=== PATIENT | male | born 1965 | race Caucasian/White ===

== ENCOUNTER → 2018-06-01 | Outpatient (CLI) | payer SELFPAY ==
--- NOTE | 2018-06-01 11:18 | REP ---
RIGHT ELBOW, FOUR VIEWS: HISTORY: Contusion. There is no acute fracture or dislocation. The joint space is normal in appearance. Ossified densities are present adjacent to the coronoid process and olecranon. This represents ligamentous or tendon calcification. IMPRESSION: There is no acute fracture or dislocation. Electronically Signed by Jorge Moore MD 06/01/2018 11:20 A
--- NOTE | 2018-06-01 11:25 | REP ---
RIGHT KNEE, FIVE VIEWS: HISTORY: Contusion. There is no acute fracture or dislocation. There is minimal narrowing of the medial knee joint space. The lateral knee joint space and patellofemoral joint space are normal in appearance. Osteophytes are present on the tibia and patella. IMPRESSION: There is no acute fracture or dislocation. Electronically Signed by Jorge Moore MD 06/01/2018 11:28 A
== END ==
LOC: M WUC 09:23
PROVIDERS: ATTEND Physician Assistant
DX: S50.01XA Contusion of right elbow, initial encounter (principal); S80.01XA Contusion of right knee, initial encounter; X58.XXXA Exposure to other specified factors, initial encounter; Y92.89 Other specified places as the place of occurrence of the external cause

== ENCOUNTER 2018-07-09 18:25 | Emergency (ER) | payer OTHER, SELFPAY ==
[~2018-07-09] VITALS: Ht 177.8 cm; Wt 152.3 kg
[2018-07-09 18:25] VITALS: BP 163/74
[2018-07-09] MEDS ORDERED: ASPI1TAB PO (18:37)
[2018-07-09] MEDS ORDERED: METF10004 PO (18:37)
[2018-07-09] MEDS ORDERED: LEVO25TA5 PO (18:37)
[2018-07-09] MEDS ORDERED: HYDR12.55 PO (18:37)
[2018-07-09] MEDS ORDERED: MELO15TA28 PO (18:37)
[2018-07-09] MEDS ORDERED: GLUCTAB6 PO (18:37)
[2018-07-09] MEDS ORDERED: FISH1000 PO (18:37)
[2018-07-09] MEDS ORDERED: LISI-538 PO (18:37)
[2018-07-09] MEDS ORDERED: CLAR10CA3 PO (18:37)
[2018-07-09] MEDS ORDERED: MULTTAB23 PO (18:37)
[2018-07-09] MEDS ORDERED: NAPR-50 PO (20:27)
[2018-07-09] MEDS ORDERED: IBUPROFEN 600 MG TAB As Ordered ONE (20:51)
[2018-07-09] MEDS ORDERED: IBUPROFEN 600 MG TAB PO ONE (21:00)
--- NOTE | 2018-07-10 07:17 | REP ---
Left knee five views: There is no fracture or dislocation. No joint effusion. Mineralization is normal. There are minimal osteoarthritic changes of the patellofemoral articulation and in the lateral compartment. Impression: No fracture or dislocation. Minimal osteoarthritic changes as described. Electronically Signed by Haris Sampson MD 07/10/2018 07:09 A
== END 2018-07-09 21:04 | disposition home or self-care (01) ==
LOC: M ED 18:25
DX: S83.92XA Sprain of unspecified site of left knee, initial encounter (principal); S80.02XA Contusion of left knee, initial encounter; W00.0XXA Fall on same level due to ice and snow, initial encounter; Y92.89 Other specified places as the place of occurrence of the external cause; Y99.0 Civilian activity done for income or pay; I10 Essential (primary) hypertension; E11.9 Type 2 diabetes mellitus without complications; Z79.899 Other long term (current) drug therapy; Z79.84 Long term (current) use of oral hypoglycemic drugs; Z79.82 Long term (current) use of aspirin

== ENCOUNTER → 2019-05-30 | Outpatient (REF) | payer BC ==
[~2019-05-30] MED LIST: ASPI81TA26 PO; CLAR10CA3 PO; FISH1000 PO; GLUCTAB6 PO; HYDR12.55 PO; LEVO25TA5 PO; LISI-538 PO; MELO15TA28 PO; METF10004 PO; MULTTAB23 PO; NAPR-837 PO
== END ==
LOC: M SFHCLERA 13:58
PROVIDERS: ATTEND Physician Assistant
DX: J02.9 Acute pharyngitis, unspecified (principal)

== ENCOUNTER → 2019-05-30 | Outpatient (CLI) | payer BC ==
--- NOTE | 2019-05-30 14:18 | REP ---
Clinical: Dyspnea on exertion . Comparison: None . Technique: PA and lateral. Findings: The mediastinum and cardiac silhouette are normal. The lung sinha are clear and without acute consolidation, effusion, or pneumothorax. The skeletal structures are intact and normal. Impression: 1. No acute cardiopulmonary process. Electronically Signed by Daniel Vinson MD 05/30/2019 02:09 P
== END ==
LOC: M LRY 13:44
PROVIDERS: ATTEND Physician Assistant
DX: R06.02 Shortness of breath (principal)

== ENCOUNTER → 2022-06-02 | Outpatient (CLI) | payer BC, OTHER ==
[~2022-06-02] MED LIST changes: +GLIP5TAB20 PO; -GLUCTAB6 PO; +GLUCTAB7 PO; -LISI-538 PO; +LISI20TA33 PO; +NAPR500T6 PO; +OMEG10002 PO; +ROSU40TA4 PO
== END ==
LOC: M LABSMTC 10:06
PROVIDERS: ATTEND Anesthesiology
DX: Z01.812 Encounter for preprocedural laboratory examination (principal); Z20.822 Contact with and (suspected) exposure to COVID-19

== ENCOUNTER 2024-12-25 08:51 | Outpatient (RCR) | payer OTHER ==
[~2024-12-25 08:51] MED LIST changes: +GLIP-318 PO; -GLIP5TAB20 PO; +NAPR-1405 PO; -NAPR500T6 PO; -ROSU40TA4 PO; +ROSU40TA81 PO
== END 2024-12-26 ==
LOC: M PT 08:51
PROVIDERS: ATTEND Family Medicine
DX: M25.562 Pain in left knee (principal)

== ENCOUNTER 2025-01-22 08:30 | Outpatient (RCR) | payer OTHER | END 2025-01-26 | LOC: M PT 08:30 | PROVIDERS: ATTEND Family Medicine | DX: M25.562 Pain in left knee (principal) ==

== ENCOUNTER 2025-02-05 08:22 | Outpatient (RCR) | payer OTHER | END 2025-02-25 | LOC: M PT 08:22 | PROVIDERS: ATTEND Family Medicine | DX: M25.562 Pain in left knee (principal) ==